=== PATIENT | female | born 1955 | race Caucasian/White ===

== ENCOUNTER → 2017-03-10 | Outpatient (CLI) | payer OTHER ==
--- NOTE | 2017-03-10 09:20 | RAD ---
Indication evaluate subcentimeter, approximately 7 mm nodule in the right upper lobe. Noncontrast imaging through the chest was performed. Images were reformatted in the coronal and sagittal planes. No prior CT imaging of the chest is available. There is a densely calcified 7 mm nodule in the right upper lobe unchanged relative to a plain film examination of the chest 04/29/2008. At the right lung apex, attached to the pleura there is a noncalcified 11 mm opacity which may reflect scar. This could represent a noncalcified pulmonary nodule. Neoplastic disease is felt unlikely accounting for this nodule but cannot be entirely excluded. Follow-up imaging along the lines of the Fleischner criteria should be considered. No additional finding in the chest is seen. There is no significant hilar or mediastinal adenopathy. A few calcified right hilar lymph nodes are noted. Imaging through the upper abdomen is unremarkable. IMPRESSION: Benign, heavily calcified, 7 mm pulmonary nodule in the right upper lobe. At the right lung apex there are changes, as outlined above, which may reflect scar. Neoplastic disease is not entirely excluded. Follow-up imaging along the lines of the Fleischner criteria should be considered. Nodules detected incidentally at non-screening CT Nodule size (mm) less than or equal to 4 Low Risk patients- no follow-up needed High Risk patients- follow-up at 12 months and if no change, no further imaging needed. Nodule size > 4-6 mm Low risk patients- follow- up at 12 months and if no change, no further imaging needed High risk patients- initial follow-up CT at 6-12 months and then at 18-24 months if no change. Nodule Size > 6-8 mm Low risk patients- initial follow-up CT at 6-12 months and then at 18-24 months if no change. High risk patients- initial follow- up CT at 3-6 months and then at 9-12 months if no change, Nodule Size >8 mm Either low or high risk patients: Follow-up CT at around 3, 9 and 24 [address], PET, and/or biopsy Note: newly detected indeterminate nodule in person 35 years of age or older. Low risk patients- minimal or absent history of smoking and/or other known risk factors. High risk patients- history of smoking or of other known risk factors. PQRS Compliance Statement: One or more of the following individualized dose reduction techniques were utilized for this examination: 1. Automated exposure control 2. Adjustment of the mA and/or kV according to patient size 3. Use of iterative reconstruction technique
== END | disposition home or self-care (01) ==
LOC: CT 08:19
PROVIDERS: ATTEND Family Medicine
DX: R91.1 Solitary pulmonary nodule (principal)
CPT/HCPCS: 71250

== ENCOUNTER → 2020-03-16 | Outpatient (CLI) | payer OTHER ==
--- NOTE | 2020-03-16 18:07 | RAD ---
PQRS Compliance Statement: One or more of the following individualized dose reduction techniques were utilized for this examination: 1. Automated exposure control 2. Adjustment of the mA and/or kV according to patient size 3. Use of iterative reconstruction technique CT abdomen/pelvis without contrast 03/16/2020 12:00 AM INDICATION: Left lower quadrant pain since November COMPARISON: None available TECHNIQUE: Multiple axial CT images of the abdomen and pelvis were obtained without intravenous contrast. Coronal and sagittal reformats are provided. FINDINGS: Lung bases are clear. Heart size is within normal limits. Evaluation of the solid abdominal viscera is limited by lack of intravenous contrast. 5 mm hypodensity in the lateral segment left hepatic lobe (series 2, image 20) as attenuation suggestive of a simple cyst. Calcifications within the spleen likely represent sequela prior granulomatous exposure. Adrenal glands are normal in appearance. The kidneys are relatively symmetric in appearance. There is no suspicious renal mass within the limitations of a noncontrast examination. There is no hydronephrosis. There are no calculi within the kidneys, ureters or urinary bladder. Small and large bowel are normal in caliber. There is no evidence for bowel obstruction. There are no pericolonic inflammatory changes. A normal, nondilated appendix is visualized without adjacent inflammatory changes. Mild colonic diverticulosis. No suspicious osseous lesion is identified. Posterior fusion hardware is identified at L2-L4 with chronic changes at L3. Left ovary is visualized. No suspicious adnexal mass. IMPRESSION: No acute abnormalities identified in abdomen and pelvis, as described in detail above. Diverticulosis without adjacent plantar changes to suggest of radiculitis. Electronically signed by: Olamide Mock MD (03/16/2020 6:04 PM) [facility]
[2020-03-16 18:17] LABS: CALCIUM 8.5 mg/dL (8.5-10.1); CREATININE 0.9 mg/dL (0.6-1.0); GFR 63.2; POTASSIUM 3.7 mmol/L (3.5-5.1)
[2020-03-16 18:31] LABS: BASO % 0 % (0-3); EOS # 0.1 x10^3/uL (0.0-0.7); EOS % 1 % (0-3); HEMATOCRIT 36.2 % (36.0-47.0); LYMPH % 37 % (24-48); MEAN CORPUSCULAR HEMOGLOBIN 32 pg (25-35); MEAN CORPUSCULAR HGB CONC 33 g/dL (31-37); MEAN CORPUSCULAR VOLUME 96 fL (79-100); MONO # 0.5 x10^3/uL (0.0-1.1); MONO % 9 % (0-9); NEUT # 2.7 x10^3uL (1.8-7.7); NEUT % 52 % (31-73); PLATELET COUNT 210 x10^3/uL (140-400); RED BLOOD COUNT 3.75 x10^6/uL (3.50-5.40); RED CELL DISTRIBUTION WIDTH 12.8 % (11.5-14.5); WHITE BLOOD COUNT 5.3 x10^3/uL (4.0-11.0)
== END | disposition home or self-care (01) ==
LOC: CT 17:29
PROVIDERS: ATTEND Family Medicine
DX: K57.30 Diverticulosis of large intestine without perforation or abscess without bleeding (principal)
CPT/HCPCS: 36415; 74176; 80048; 85025

== ENCOUNTER → 2020-04-04 | Outpatient (CLI) | payer OTHER ==
--- NOTE | 2020-04-04 15:32 | RAD ---
EXAMINATION: CT LUMBAR SPINE WO CONTRAST, 04/04/2020 12:00 AM CLINICAL INDICATION: Low back pain, history of surgery COMPARISON: CT abdomen pelvis 03/16/2020 TECHNIQUE: Helical CT imaging performed of the lumbar spine without the use of intravenous contrast. Sagittal and coronal reformats were obtained. One or more of the following individualized dose reduction techniques were utilized for this examination: 1. Automated exposure control 2. Adjustment of the mA and/or kV according to patient size 3. Use of iterative reconstruction technique. FINDINGS: There are surgical changes of posterior fusion with bilateral pedicle screws at L2 and L4 and vertical connecting rods. The fusion spans a burst fracture of L3, which is unchanged in appearance from 03/16/2020. Hardware is intact without evidence of fracture or loosening. Pedicle screws are well seated. There appears to be osseous fusion of the posterior lateral gutters at L2-L3 and L3-L4, although evaluation is mildly limited due to artifact from hardware. There is partial osseous fusion across the disc spaces at L to L3 and L3-L4. No acute fracture. 2. 3 mm retrolisthesis of L2 one in L2 is unchanged. There is moderate to severe disc space narrowing at T12-L1 and L1-L2 with degenerative endplate changes and anterior osteophytes.. Mild disc space narrowing at L4-L5. L5-S1 is relatively maintained. Visualized portion of the retroperitoneum is unremarkable. Segmental analysis: T12-L1: Partially calcified central disc protrusion superimposed on disc bulge results in probable mild canal narrowing. No definite foraminal narrowing. L1-L2: A disc bulge and posterior endplate proliferation results in probable mild canal narrowing on sagittal images. Artifact from hardware limits evaluation of the canal on axial images. No definite foraminal narrowing. L2-L3: Suboptimal evaluation of canal and foramina due to artifact from hardware. No definite canal or foraminal narrowing. L3-L4: Suboptimal evaluation of canal and foramina due to artifact from hardware. Small amount of posterior endplate proliferation or retropulsed bone extending slightly into the left foramen, although no definite canal or foraminal narrowing. L4-L5: Small broad-based disc bulge. Suboptimal evaluation of canal and foramina due to artifact from hardware. There is suspected canal narrowing, however evaluation is limited due to artifact. There may be also be some degree of foraminal narrowing. L5-S1: Small broad-based disc bulge. No canal or foraminal narrowing. IMPRESSION: 1. Surgical changes of posterior fusion at L2-L4, spanning an unchanged L3 burst fracture. No evidence of hardware complication. There is probable osseous fusion in the posterior lateral gutters at L2-L3 and L3-L4. 2. Moderate degenerative disc disease at T12-L1 and L1-L2, and mild degenerative disc disease elsewhere. Limited evaluation of canal and foraminal narrowing, particularly at L2-L3 through L4-L5, due to artifact from hardware. Probable mild canal narrowing at T12-L1 and suspect some degree of canal and foraminal narrowing at L4-L5. Consider MRI or CT myelogram to further evaluate as indicated. Electronically signed by: Deidra Gandhi MD (04/04/2020 3:29 PM) [id number]
== END | disposition home or self-care (01) ==
LOC: CT 11:05
PROVIDERS: ATTEND Family Medicine
DX: S32.031A Stable burst fracture of third lumbar vertebra, initial encounter for closed fracture (principal); M51.15 Intervertebral disc disorders with radiculopathy, thoracolumbar region; M48.061 Spinal stenosis, lumbar region without neurogenic claudication; X58.XXXA Exposure to other specified factors, initial encounter; Y93.89 Activity, other specified; Y92.89 Other specified places as the place of occurrence of the external cause; Y99.8 Other external cause status
CPT/HCPCS: 72131